=== PATIENT | female | born 1980 | race Hispanic/Latino ===

== ENCOUNTER 2022-04-30 21:27 | Emergency (ER) | payer BC, OTHER ==
[~2022-04-30] VITALS: Ht 154.9 cm; Wt 65.8 kg
[2022-04-30] MEDS ORDERED: ACETAMINOPHEN 325 MG TAB PO ONE (21:45)
[2022-04-30] MEDS ORDERED: MUPIROCIN 2% OINT 22 GM TUBE TOP ONE (21:45)
[2022-04-30] MEDS ORDERED: IBUPROFEN 200 MG TAB PO ONE (21:45)
[2022-04-30] MEDS ORDERED: HYDROCODONE/APAP 5MG-325MG TAB PO ONE (22:45)
[2022-04-30] MEDS ORDERED: ONDANSETRON HCL 4 MG ORAL DISINTEGRATING TAB PO ONE (22:45)
[2022-04-30] MEDS ORDERED: IBUPROFEN200 MG PO (22:50)
[2022-04-30] MEDS ORDERED: ONDANSETRON ODT4 MG PO (22:50)
[2022-04-30] MEDS ORDERED: HYDROCODON-ACE1 EA12 PO (22:50)
[2022-04-30] MEDS ORDERED: IBUPROFEN 600 MG TAB ONE (22:51)
[2022-04-30] MEDS ORDERED: HYDROCODONE/APAP 5MG-325MG TAB ONE (22:51)
[2022-04-30] MEDS ORDERED: ONDANSETRON HCL 4 MG ORAL DISINTEGRATING TAB ONE (22:51)
[2022-05-02] MEDS ORDERED: HYDROCODON-ACE1 EA12 PO (18:35)
[2022-05-02] MEDS ORDERED: IBUPROFEN600 MG PO (18:38)
[2022-05-02] MEDS ORDERED: ONDANSETRON ODT4 MG PO (18:38)
== END 2022-04-30 23:00 | disposition home or self-care (01) ==
LOC: FSED 21:32
DX: S80.212A Abrasion, left knee, initial encounter (principal); S93.492A Sprain of other ligament of left ankle, initial encounter; W01.0XXA Fall on same level from slipping, tripping and stumbling without subsequent striking against object, initial encounter; Y93.01 Activity, walking, marching and hiking; Y92.89 Other specified places as the place of occurrence of the external cause
CPT/HCPCS: 73610; 99283; Q0162

== ENCOUNTER 2024-07-23 14:49 | Emergency (ER) | payer BC, OTHER ==
[~2024-07-23] VITALS: Ht 154.9 cm; Wt 65.8 kg
[~2024-07-23 14:49] MED LIST: HYDROCODON-ACE1 EA12 PO; IBUPROFEN200 MG PO; IBUPROFEN600 MG PO; ONDANSETRON ODT4 MG PO
[2024-07-23 15:09] VITALS: TEMP 98.8
[2024-07-23 15:29] LABS: BASOPHILS # (AUTO) 0.1 (0.0-0.1); BASOPHILS % 0.5 % (0.0-1.0); EOSINOPHILS # (AUTO) 0.3 (0.0-0.4); EOSINOPHILS % 3.1 % (0.0-6.0); HEMOGLOBIN 14.2 g/dL (12.0-16.0); LYMPHOCYTES # (AUTO) 2.1 (1.0-3.2); LYMPHOCYTES % 18.8 % (18.0-39.1); MEAN CORPUSCULAR HEMOGLOBIN 29.8 pg (28-32); MEAN CORPUSCULAR HGB CONC 32.3 g/dL (31-35); MEAN CORPUSCULAR VOLUME 92.2 fL (81-99); MONOCYTES # (AUTO) 0.7 (0.2-0.8); NEUTROPHILS # (AUTO) 7.9 (2.1-6.9); NEUTROPHILS % 70.9 % (38.7-80.0); PLATELET COUNT 333 x10e3/uL (140-360); RED BLOOD COUNT 4.77 x10e6/uL (3.6-5.1); RED CELL DISTRIBUTION WIDTH 13.1 % (11.7-14.4); WHITE BLOOD COUNT 11.09 x10e3/uL (4.8-10.8)
[2024-07-23 15:38] LABS: INR 0.99; PROTHROMBIN TIME 13.7 seconds (11.9-14.5)
[2024-07-23 15:39] LABS: PARTIAL THROMBOPLASTIN TIME 26.6 seconds (23.8-35.5)
[2024-07-23 15:48] LABS: ALBUMIN 3.9 g/dL (3.5-5.0); ALBUMIN/GLOBULIN RATIO 1.1 (0.8-2.0); ANION GAP 15.8 mmol/L (8-16); BILIRUBIN,TOTAL 0.6 mg/dL (0.2-1.2); CALCIUM 9.8 mg/dL (8.4-10.2); CREATININE, SERUM 0.8 mg/dL (0.57-1.11); POTASSIUM 3.8 mmol/L (3.5-5.1); TOTAL PROTEIN 7.3 g/dL (6.5-8.1)
[2024-07-23] MEDS: DIPHENHYDRAMINE HCL INJ 50 MG/ML VIAL IV ONE (15:58)
[2024-07-23] MEDS: KETOROLAC TROMETHAMINE 30 MG/ML VIAL IV STA (15:58)
[2024-07-23] MEDS: SODIUM CHLORIDE 0.9% 1000ML 1,000 ML IV STA (15:58)
[2024-07-23] MEDS: METOCLOPRAMIDE HCL 10 MG/2ML VIAL IV ONE (15:59)
[2024-07-23] MEDS: ACETAMIN/BUTALBITAL/CAFFEINE TAB PO ONE (16:22)
[2024-07-23 17:03] VITALS: PULSE 54; RESP 16; O2SAT 99
[2024-07-23] MEDS ORDERED: ONDANSETRON ODT4 MG PO (17:21)
[2024-07-23] MEDS ORDERED: FIORICET 50-301 EACH PO (17:21)
== END 2024-07-23 17:42 | disposition home or self-care (01) ==
LOC: ER 15:19
DX: G43.909 Migraine, unspecified, not intractable, without status migrainosus (principal); R11.2 Nausea with vomiting, unspecified; R42 Dizziness and giddiness
CPT/HCPCS: 36415; 70450; 80053; 85025; 85610; 85730; 99284; J1200; J1885; J2765; J7030